=== PATIENT | male | born 1945 | race Caucasian/White ===

== ENCOUNTER → 2019-07-12 10:00 | Outpatient (BNVA) | payer MEDICARE, MEDICAID, SELFPAY | PROVIDERS: Family Provider Family Medicine; PCP Family Medicine; Visit Provider Family Medicine | DX: I10 Essential (primary) hypertension (principal); R07.81 Pleurodynia | CPT/HCPCS: 71046 ==

== ENCOUNTER → 2020-10-01 11:18 | Outpatient (BNVA) | payer MEDICARE, MEDICAID, SELFPAY | PROVIDERS: Family Provider Family Medicine; PCP Family Medicine; Visit Provider Family Medicine | DX: I10 Essential (primary) hypertension (principal); M54.16 Radiculopathy, lumbar region; M47.26 Other spondylosis with radiculopathy, lumbar region; Z13.1 Encounter for screening for diabetes mellitus; Z13.220 Encounter for screening for lipoid disorders; Z13.6 Encounter for screening for cardiovascular disorders | CPT/HCPCS: 80053; 80061; 85025 ==

== ENCOUNTER 2020-10-07 13:09 | Outpatient (CLI) | payer MEDICARE, MEDICAID, SELFPAY ==
--- NOTE | 2020-10-07 13:45 | MR_ITS ---
WS: [id number] MRI LUMBAR SPINE NONCONTRAST TECHNIQUE: Sagittal T1, T2 and STIR imaging. Axial T1 and T2 imaging. CLINICAL INFORMATION: M54.16 - Radiculopathy, lumbar region COMPARISON: None. FINDINGS: Mild lumbar curve. No acute compression. Grade 1 anterolisthesis L5 on S1 measuring approximately 5 m m. Disc space narrowing with endplate degenerative changes throughout the lumbar spine. Small disc protrusions in the lower thoracic spine at T11-T12 and T12-L1. Moderate central canal sten osis T11-12 with slight contact of the thoracic cord. Moderate bilateral foraminal narrowing. L1-L2: Mild disc bulging and osteophytic ridging. Moderate central canal stenosis. Moderate facet art hropathy. Moderate left and no significant right foraminal narrowing. L2-L3: Disc desiccation with disc osteophytic ridging. Moderate central canal stenosis with impingeme nt on traversing L3 nerve roots bilaterally. Moderate facet arthropathy with ligamentum flavum hypert rophy. Moderate to severe left and no significant right foraminal narrowing. L3-L4: Disc osteophyte complex with endplate ridging. Moderate central canal stenosis. Impingement tr aversing L4 nerve roots. Moderate facet arthropathy ligamentum flavum hypertrophy. Moderate bilateral foraminal narrowing. L4-L5: Disc osteophyte complex with endplate ridging. Moderate to severe central canal stenosis. Mode rate facet arthropathy ligament flavum hypertrophy. Facet arthropathy worse in the right. Moderate to severe right and mild left foraminal narrowing. L5-S1: Slight anterolisthesis L5 on S1. Mild disc bulging with osteophytic ridging. Mild central gilberto l stenosis. Impingement on the traversing left greater than right S1 nerve roots. Advanced facet arth ropathy with ligamentum flavum hypertrophy. Small facet effusions. Small right synovial cyst contribu mei to right L5 exiting nerve root impingement. Small synovial cyst measures 7 mm. Mild left foramina l narrowing. Mild central canal stenosis in the cervical spine with small disc protrusions at C3-C6. Visualized pelvic bony structures: Normal. Paravertebral soft tissues: Normal. MR/MR lumbar spine wo con* [id number] IMPRESSION: 1. Mild lumbar curve. No acute compression. 2. Moderate central canal stenosis L1-L2 and L2-L3. Moderate to severe central canal stenosis L3-L4 and L4-L5 worse L4-5 with facet arthropathy ligamentum fl avum hypertrophy. 3. Advanced facet arthropathy L5-S1 with a small right synovial cyst measuring 8 mm slightly impinges the exiting right L5 nerve root. 4. Disc bulging L5-S1 impinges the traversing S1 nerve roots bilaterally. This worse in the left. 5. Moderate to severe foraminal narrowing right L4-5 with impingement on the e xiting right L4 nerve root. 6. Moderate central canal stenosis T11-T12 with central disc protrusion and sl ight indentation on the thoracic cord. Moderate bilateral T11-T12 foraminal angelica rowing. 7. Small central protrusion T12-L1 with mild central canal stenosis..
== END 2020-10-07 13:10 | disposition home or self-care (01) ==
LOC: RADWPI 13:16
PROVIDERS: PCP Family Medicine; Visit Provider Family Medicine
DX: M54.16 Radiculopathy, lumbar region (principal); M48.061 Spinal stenosis, lumbar region without neurogenic claudication; M47.817 Spondylosis without myelopathy or radiculopathy, lumbosacral region; M51.27 Other intervertebral disc displacement, lumbosacral region
CPT/HCPCS: 72148